=== PATIENT | female | born 1930 | race Caucasian/White ===

== ENCOUNTER → 2016-12-08 | Outpatient (CLI) | payer MEDICARE, BC ==
[~2016-12-08] MED LIST: ACTOS PO; ASPIRIN PO; ASPIRIN81 MG PO; BACTRIM DS TABL1 TA1 PO; CORDARONE200 M1 PO; DICYCLOMINE HCL20 MG PO; DIGOX0.125 MG PO; FERRO-TIME325 MG PO; LANOXIN PO; LEVOTHYROXINE75 MCG PO; LOPRESSOR PO; METFORMIN PO; METOPROLOL SUCC50 MG PO; MICRONASE5 M2 PO; MOBIC PO; PERCOCET5/325 PO; PIOGLITAZONE30 MG PO; PRAVASTATIN SOD40 MG PO; PRILOSEC20 M1 PO; PROTONIX PO; TOPROL XL PO; XARELTO15 MG PO; ZOCOR PO
--- NOTE | ~2016-12-08 | US128 ---
[id number] [address] [place], [place] [address] [id number] O MR#: [id number] Acc #: [id number] NAME: AV STEIN : 1930 SEX: F STUDY DATE/TIME: 12/08/2016 14:36 UNIT: CGUS ROOM: STUDY DESCRIPTION: Thyroid Attending Physician: Claudia Bailey A.P.R.N. Referring Physician: Claudia Bailey A.P.R.N. Ordering Physician: Claudia Bailey A.P.R.N. Primary Care Physician: Vikash Botello M.D. MEDICAL IMAGING REPORT This report is preliminary unless electronic signature is present EXAM Thyroid ultrasound, 12/08/2016 INDICATION Prior left thyroidectomy. Difficulty swallowing for 1 month. Right thyroid nodules. COMPARISON CT neck dated 08/15/2010 FINDINGS The right lobe of the thyroid measures 4.4 cm x 1.8 cm x 1.6 cm. The left lobe of the thyroid is surgically absent. No residual thyroid parenchyma is identified on the left. The isthmus measures 0.3 cm in thickness. The right thyroid parenchyma is heterogenous and coarsened compatible with a chronic thyroiditis. There are a few small nodules in the thyroid measuring up to 0.9 cm maximally. No microcalcifications. IMPRESSION 1. Postsurgical change of left thyroidectomy. No residual thyroid tissue is identified on the left. 2. Coarsened thyroid parenchyma on the right consistent with a chronic thyroiditis. 3. Small subcentimeter thyroid nodules measuring up to 0.9 cm. No suspicious or aggressive features. These nodules do not warrant further evaluation with fine needle aspiration. Dictated by... Daquan Mccoy M.D. THIS IS AN ELECTRONICALLY VERIFIED REPORT Daquan Mccoy M.D. at 12/09/2016 3:04 PM ASIA/boy TD: 12/09/2016 00:18 JOB #: [id number] MEDICAL IMAGING REPORT Page 1 of 1 COPY
== END | disposition home or self-care (01) ==
LOC: CGUS 12:39
DX: E04.1 Nontoxic single thyroid nodule (principal); E89.0 Postprocedural hypothyroidism
CPT/HCPCS: 76536

== ENCOUNTER → 2017-01-12 | Outpatient (CLI) | payer MEDICARE, BC ==
--- NOTE | ~2017-01-12 | MR172 ---
[facility] A Service of [facility] & [facility] RADIOLOGY TEXT RESULTS PATIENT: AV STEIN LOCATION: [facility] : [birth year] UNIT #: [id number] AGE: [address]: Claudia Bailey APRN SEX: F ORDER DR: [id number] [facility] [address] [place], [place] [address] [id number] O MR#: [id number] Acc #: [id number] NAME: AV STEIN : 1930 SEX: F STUDY DATE/TIME: 01/12/2017 13:02 UNIT: CMRI ROOM: STUDY DESCRIPTION: MR Thigh Wo Contrast Lt Attending Physician: Claudia Bailey A.P.R.N. Referring Physician: Claudia Bailey A.P.R.N. Ordering Physician: Claudia Bailey A.P.R.N. Primary Care Physician: Vikash Botello M.D. MRI CENTER REPORT This report is preliminary unless electronic signature is present. EXAM MRI left thigh without contrast, 01/12/2017. COMPARISON MRI left knee 01/12/2017, CT pelvis 02/07/2015. Bone scan 02/27/2015. Office notes 12/22/2016. HISTORY Order states pain, decreased range of motion. History sheet states cortisone injection, right hip, July 2016. Patient favored left hip and developed chronic left knee and leg pain. No trauma and no fall. No hip surgery. History of breast cancer. FINDINGS The predominant abnormalities involve the left hip. Exam was performed as ordered as a thigh protocol, and therefore detailed evaluation of the hip is limited. There is, however, evidence of a moderate slightly complex signal joint effusion (suggestive of synovitis), fairly advanced left hip arthrosis with joint space narrowing and osteophyte formation, and mild osteophyte formation. There is marked subarticular marrow edema throughout the femoral head, neck, and acetabulum with likely adjacent reactive soft tissue edema in the adductor musculature. There is a suspected subtle insufficiency fracture of the anterosuperior left femoral head measuring approximately 16 mm in AP dimension. This could be confirmed and better characterized with dedicated left hip MRI, if clinically warranted. The appearance is not typical for avascular necrosis. Limited coverage of the opposite right hip demonstrates complex signal effusion with synovitis and loose bodies as well as arthritic change. The pubic rami show no fracture. [facility]. [facility] A Service of [facility] RADIOLOGY TEXT RESULTS PATIENT: AV STEIN LOCATION: [facility] : 31 UNIT #: [id number] AGE: [address]: Claudia Bailey APRN SEX: F ORDER DR: The remainder of the femur is unremarkable. The thigh musculature is normal. No mass or fluid collection is noted. IMPRESSION 1. Markedly abnormal appearance of the left hip on this MRI thigh protocol study. The left hip would be better characterized on dedicated pelvic hip imaging. Nevertheless, there is a moderate complex signal left hip joint effusion with synovitis/debris, joint space narrowing and osteophyte formation compatible with arthrosis, and severe subarticular marrow edema of the femur and acetabulum. The femoral head marrow edema and is possibly related to a subtle 16 mm insufficiency fracture of the anterosuperior femoral head. There is no definite neck fracture. There is reactive edema of the adjacent adductor musculature. There is no evidence of avascular necrosis. 2. Partial inclusion of the opposite right hip demonstrates arthrosis with a complex signal effusion with loose bodies. 3. The remainder of the thigh is normal. 4. Claudia Bailey APRN, was contacted regarding the above findings on 01/13/2017. Dictated by... Adina Her M.D. THIS IS AN ELECTRONICALLY VERIFIED REPORT Adina Her M.D. at 01/14/2017 11:46 AM JONNATHAN/anisha TD: 01/13/2017 12:04 JOB #: [id number] MRI CENTER REPORT Page 1 of 1 COPY
--- NOTE | ~2017-01-12 | MR103 ---
[facility] A Service of [facility] & [facility] RADIOLOGY TEXT RESULTS PATIENT: AV STEIN LOCATION: [facility] : [birth year] UNIT #: [id number] AGE: [address]: Claudia Bailey APRN SEX: F ORDER DR: [id number] [facility] [address] [place], [place] [address] [id number] O MR#: [id number] Acc #: [id number] NAME: AV STEIN : 1930 SEX: F STUDY DATE/TIME: 01/12/2017 12:34 UNIT: CMRI ROOM: STUDY DESCRIPTION: MR Knee Wo Contrast Lt Attending Physician: Claudia Bailey A.P.R.N. Referring Physician: Claudia Bailey A.P.R.N. Ordering Physician: Claudia Bailey A.P.R.N. Primary Care Physician: Vikash Botello M.D. MRI CENTER REPORT This report is preliminary unless electronic signature is present. EXAM MRI of the left knee 01/12/2017 COMPARISON No correlative studies of the knees. HISTORY Order states MRI left thigh and knee without contrast. Pain and decreased range of motion. History sheet states: Patient received a cortisone injection in the right hip for right hip pain in July 2016. Was favoring her left leg too much to take pressure off the right hip. No fall or trauma. Chronic left knee and leg pain since July 2016. Left knee cortisone injection after Thanksgiving. History of breast cancer. No knee surgery. FINDINGS There is no effusion. There is a small popliteal cyst which measures 3.7 cm in length. Patellofemoral alignment is normal. 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 Femoral trochlear articular cartilage is intact although generally attenuated. Quadriceps and patellar tendons are intact. There is inflammation in the superficial pre-patellar tendon region. Cruciate ligaments are normal. The menisci, collateral ligaments, and popliteus tendon are intact. No high-grade chondromalacia or full-thickness cartilage lesion in the medial or lateral compartments is noted. There is no marrow lesion, fracture, or loose body. [facility]. [facility] A Service of [facility] RADIOLOGY TEXT RESULTS PATIENT: AV STEIN [facility] : [birth year] UNIT #: [id number] AGE: [address]: Claudia Bailey APRN SEX: F ORDER DR: IMPRESSION 1. Chondromalacia patella detailed above. 2. Small popliteal cyst. 3. Cruciate ligaments and menisci are normal. No fracture. 4. Anterior subcutaneous edema. 5. See separate left thigh report. Dictated by... Adina Her M.D. THIS IS AN ELECTRONICALLY VERIFIED REPORT Adina Her M.D. at 01/13/2017 11:35 AM JONNATHAN/bandar TD: 01/13/2017 11:10 JOB #: [id number] MRI CENTER REPORT Page 1 of 1 COPY
== END | disposition home or self-care (01) ==
LOC: CMRI 12:02
DX: M25.562 Pain in left knee (principal); M22.42 Chondromalacia patellae, left knee; M71.22 Synovial cyst of popliteal space [Baker], left knee; M16.12 Unilateral primary osteoarthritis, left hip; M25.452 Effusion, left hip; M24.052 Loose body in left hip; R60.0 Localized edema
CPT/HCPCS: 73718; 73721

== ENCOUNTER → 2017-01-21 | Outpatient (CLI) | payer MEDICARE, BC ==
--- NOTE | ~2017-01-21 | XA30 ---
[facility] A Service of [facility] & [facility] RADIOLOGY TEXT RESULTS PATIENT: AV STEIN LOCATION: [facility] : [birth year] UNIT #: [id number] AGE: [address]: Jovi Smith MD SEX: F ORDER DR: [id number] [facility] [address] [place], [place] [address] [id number] O MR#: [id number] Acc #: [id number] NAME: AV STEIN : 1930 SEX: F STUDY DATE/TIME: 01/21/2017 12:41 [facility] ROOM: STUDY DESCRIPTION: XA Arthrocentesis Major Joint Attending Physician: Jovi Smith M.D. Referring Physician: Jovi Smith M.D. Ordering Physician: Jovi Smith M.D. Primary Care Physician: Vikash Botello M.D. MEDICAL IMAGING REPORT This report is preliminary unless electronic signature is present EXAM Bilateral hip injection. INDICATION Bilateral hip pain. Patient has had a prior right hip injection on July 23, 2016. PROCEDURE The risks, benefits, and alternatives to the procedure were explained to the patient, and signed, informed consent was obtained. The patient was placed supine on the angiographic table and was prepped and draped in the usual sterile fashion. Time-out was performed as per protocol. Skin and subcutaneous tissues overlying the right hip were anesthetized with buffered lidocaine and a 22-gauge spinal needle was advanced into the joint space. Contrast was injected which confirmed location within the joint space. I then instilled a combination of lidocaine, bupivacaine, and Depo-Medrol. Needle was then removed and manual pressure was applied until hemostasis was obtained. Total fluoroscopy time on the right was 0.2 minutes. AK was 4 mGy. At this point, I turned my attention to the left hip. Again skin and subcutaneous tissues were anesthetized with buffered lidocaine and a 22-gauge spinal needle was advanced into the joint space. Contrast was injected which confirmed location within the joint space and then I instilled a combination of lidocaine, bupivacaine, and Depo-Medrol. Needle was then removed and manual pressure was applied until hemostasis was obtained. Total fluoroscopy time on the left with 0.3 minutes. AK was 5 mGy. IMPRESSION Technically successful bilateral hip injection under fluoroscopy as noted above. Fluoroscopy was used during the procedure and permanent images were saved. [facility] A Service of [facility] RADIOLOGY TEXT RESULTS PATIENT: AV STEIN LOCATION: [facility] : [birth year] UNIT #: [id number] AGE: [address]: Jovi Smith MD SEX: F ORDER DR: Dictated by... Abigail العراقي M.D. THIS IS AN ELECTRONICALLY VERIFIED REPORT Abigail العراقي M.D. at 01/22/2017 5:06 PM BOAZ/xochitl TD: 01/22/2017 10:24 JOB #: [id number] MEDICAL IMAGING REPORT Page 1 of 1 COPY
== END | disposition home or self-care (01) ==
LOC: CIVR 12:18
PROC: 3E0U33Z Introduction of Anti-inflammatory into Joints, Percutaneous Approach (ICD-10-PCS; principal; 2017-01-21)
PROC: 3E0U3BZ Introduction of Anesthetic Agent into Joints, Percutaneous Approach (ICD-10-PCS; 2017-01-21)
DX: M16.0 Bilateral primary osteoarthritis of hip (principal)
CPT/HCPCS: 77002; J1030; Q9966